=== PATIENT | male | born 1980 | race Caucasian/White ===

== ENCOUNTER 2023-09-16 14:17 | Emergency (ER) | payer BC ==
[~2023-09-16] VITALS: Ht 167.6 cm; Wt 121.8 kg
[2023-09-16] MEDS ORDERED: ANTI-FUNGAL1% TOP (14:53)
[2023-09-16] MEDS ORDERED: BACTRIM DS 8001 TAB PO (15:16)
[2023-09-16 15:25] VITALS: BP 148/83; PULSE 99; TEMP 98
== END 2023-09-16 15:23 | disposition home or self-care (01) ==
LOC: COL.ER 14:17
DX: L03.114 Cellulitis of left upper limb (principal); B35.4 Tinea corporis; F17.200 Nicotine dependence, unspecified, uncomplicated